=== PATIENT | female | born 1965 | race Two or more races ===

== ENCOUNTER 2022-10-29 20:42 | Inpatient (IN) | payer MEDICARE ==
[~2022-10-29] VITALS: Ht 160 cm; Wt 61.7 kg
[2022-10-29 20:00] VITALS: BP 134/76; TEMP 98.3
--- NOTE | 2022-10-29 20:00 | NUR ---
FARM PLANNER NOTE: ADMITTED A 57-Y/O, FEMALE, FROM [facility]. ADMITTED ON A 5150 HOLD FOR DTS. PER HOLD, PT. OVERDOSED ON MEDICATIONS. UPON FACE TO FACE EVALUATION, PATIENT IS ALERT AND ORIENTED X3, APPEARS TO BE DEPRESSED AND GUARDED. PATIENT DENIES SI/HI/AVH AT THIS TIME. SKIN ASSESSMENT DONE. ALL BELONGINGS WERE CHECKED FOR CONTRABAND. PATIENT'S RIGHTS WERE DISCUSSED AND BOOKLET WAS GIVEN. CONTACTED DR. MILNER AND HOSPITALIST [employer] AND INFORMED THEM OF THE ADMISSION. BED IN LOW AND LOCKED POSITION. SAFETY PRECAUTIONS MAINTAINED. PT REFUSED TO SIGN ADMITTING DOCUMENTS. PT STATED "SHE'S TIRED/SLEEPY". WILL CONTINUE TO MONITOR Q15 MINS FOR MOOD, SAFETY AND BEHAVIOR.
[2022-10-29] MEDS ORDERED: TEMAZEPAM 7.5 MG CAPSULE PO PRN (21:30)
[2022-10-29] MEDS ORDERED: MAGNESIUM HYDROXIDE 30 ML UDC PO PRN (21:30)
[2022-10-29] MEDS ORDERED: MAG HYDROX/AL HYDROX/SIMETH 30 ML UDC PO PRN (21:30)
[2022-10-29] MEDS ORDERED: BLOOD SUGAR DIAGNOSTIC 1 EACH STRIP IN ONE (21:30)
[2022-10-29] MEDS ORDERED: ACETAMINOPHEN 325 MG TABLET PO PRN (21:30)
[2022-10-29] MEDS ORDERED: LORAZEPAM 0.5 MG TABLET PO PRN (21:30)
[2022-10-29] MEDS ORDERED: TRAZ-182 MT (22:07)
[2022-10-29] MEDS ORDERED: NICO-762 TD (22:07)
[2022-10-29] MEDS ORDERED: ATOR40TA MT (22:07)
[2022-10-29] MEDS ORDERED: LISI-768 PO (22:07)
[2022-10-29] MEDS ORDERED: CARV3.122 MT (22:07)
[2022-10-29] MEDS ORDERED: FURO20TA4 MT (22:07)
[2022-10-29] MEDS ORDERED: ESCI10TA MT (22:07)
[2022-10-29] MEDS ORDERED: RIVA10TA MT (22:07)
[2022-10-30 07:56] LABS: CHOLESTEROL 144 mg/dL (<200); HDL CHOLESTEROL 90 mg/dL (40-60); LDL 46 mg/dL (0-99); TRIGLYCERIDES 33 mg/dL (30-150)
[2022-10-30 08:00] VITALS: BP 104/67; TEMP 97.9
[2022-10-30 08:00] LABS: BILIRUBIN,TOTAL 0.9 mg/dL (0.2-1.0); CALCIUM, SERUM 9.5 mg/dL (8.5-10.1); CREATININE 0.8 mg/dL (0.6-1.3); POTASSIUM 3.8 mmol/L (3.5-5.1); TOTAL PROTEIN, SERUM 7.3 g/dL (6.4-8.2)
[2022-10-30] MEDS: LISINOPRIL (5MG) 5 MG TABLET PO SCH (09:00)
[2022-10-30] MEDS: CARVEDILOL 3.125 MG TABLET PO SCH ×2 (09:10→21:25)
[2022-10-30] MEDS: FUROSEMIDE 20 MG TABLET PO SCH (09:10)
[2022-10-30] MEDS: NICOTINE PATCH (21MG) 21 MG PATCH.TD24 TD SCH (09:10)
--- NOTE | 2022-10-30 09:12 | NUR ---
RN- NOTES COREG 3.125MG ADMINISTERED AND LISINOPRIL 5MG HELD PER DR. OZUNA ORDERS. B/P 104/67 AND P 64 NOTED.
--- NOTE | 2022-10-30 10:11 | NUR ---
SHLOMO Clinical Note: Pt placed on a 5150 hold for danger to self. Per hold, pt overdosed on medication in an attempt of SI. Patient currently resides at [address] [place] [address], [place] [address]; ([phone]). Patient would want to return back home when stable.
--- NOTE | 2022-10-30 10:11 | NUR ---
SHLOMO Initial Discharge Note: Patient currently resides at [address] [place] [address], [place] [address]; ([phone]). Patient would want to return back home when stable. SHLOMO will work with the MD and pt to help coordinate appropriate discharge.
--- NOTE | 2022-10-30 12:49 | NUR ---
SHLOMO Family Contact: SW contacted pt's daughter Chen ([phone]) stated that it is unsafe for pt to go back home because she has had multiple heart attacks at home and has been left unattended for days. She reported that pt has been refusing care and has not been accepting care. She stated that she has given up on her care since last Saturday and trying to provide care. She stated that pt would need a facility. She reported that her outpatient doctor reported that pt has a short term life span.
[2022-10-30] MEDS: DIVALPROEX SODIUM 250 MG TABLET.DR PO SCH (13:40)
[2022-10-30 16:06] VITALS: BP 113/59; TEMP 97.7
[2022-10-30] MEDS: RIVAROXABAN 10 MG TABLET PO SCH (16:15)
--- NOTE | 2022-10-30 20:00 | NUR ---
RN NOTE :- RECEIVED PATIENT LYING ON THE BED .A/O X3. BREATHING EVEN AND UNLABORED WITH EQUAL RISE AND FALL OF THE CHEST.NO C/O PAIN DURING SHIFT. PATIENT IS COOPERATIVE ,MED COMPLIANT .ALL NEEDS MET AND ANTICIPATED.WILL CONTINUE TO MONITOR Q15 MINS FOR SAFETY AND BEHAVIOR WITH THE HELP OF STAFF.
[2022-10-30 21:01] VITALS: BP 113/71; TEMP 97.4
[2022-10-30] MEDS: ATORVASTATIN 40 MG TABLET PO SCH (21:24)
--- NOTE | 2022-10-31 06:29 | NUR ---
RN NOTE :- PATIENT IS SLEEPING COMFORTABLY IN BED, EASILY AWAKEN, CALM, RESPONSIVE, AOX2, BREATHING ON ROOM AIR WITHOUT DIFFICULTY, NOT IN ANY FORM OF ACUTE DISTRESS, SAFETY MEASURES IN PLACE: BED IN LOWEST AND LOCKED POSITION, SIDE RAILS UP X2, TRAY TABLE WITHIN EASY REACH. WILL ENDORSE TO MOLD CHANGER NURSE. Addendum: 10/31/22 at 0633 by CAESAR THURMAN RN WILL ENDORSE TO MORNING SHIFT NURSE*
[2022-10-31 08:00] VITALS: BP 107/61; TEMP 97.9
[2022-10-31] MEDS: ESCITALOPRAM OXALATE (10 MG) 10 MG TABLET PO SCH (08:38)
[2022-10-31] MEDS: LISINOPRIL (5MG) 5 MG TABLET PO SCH (08:38)
[2022-10-31] MEDS: NICOTINE PATCH (21MG) 21 MG PATCH.TD24 TD SCH (08:38)
[2022-10-31] MEDS: DIVALPROEX SODIUM 250 MG TABLET.DR PO SCH ×2 (08:38→12:04)
[2022-10-31] MEDS: FUROSEMIDE 20 MG TABLET PO SCH (08:38)
[2022-10-31] MEDS: CARVEDILOL 3.125 MG TABLET PO SCH ×2 (08:38→21:16)
--- NOTE | 2022-10-31 10:02 | NUR ---
RN-CO: Received patient awake, took all her meds.She is depressed and unmotivated.I encouraged er to ventilate her feelings and attend group activities. She denied pain and discomforts.
[2022-10-31 16:00] VITALS: BP 136/83; TEMP 98.4
[2022-10-31] MEDS: RIVAROXABAN 10 MG TABLET PO SCH (16:25)
[2022-10-31 20:00] VITALS: BP 130/74; TEMP 98.4
[2022-10-31] MEDS: ATORVASTATIN 40 MG TABLET PO SCH (21:16)
--- NOTE | 2022-10-31 22:39 | NUR ---
RN NOTE:- PATIENT REQUESTED FOR SLEEPING PILL. PRN MEDICATION, RESTORIL 7.5 MG, ADMINISTERED PER MD ORDER.WILL CONTINUE TO MONITOR.
--- NOTE | 2022-11-01 06:11 | NUR ---
RN NOTE :-PATIENT IS SLEEPING COMFORTABLY IN BED, EASILY AWAKEN, CALM, RESPONSIVE, AOX2, BREATHING ON ROOM AIR WITHOUT DIFFICULTY, MED COMPLIANT ,NOT IN ANY FORM OF ACUTE DISTRESS, SAFETY MEASURES IN PLACE: BED IN LOWEST AND LOCKED POSITION, SIDE RAILS UP X2, TRAY TABLE WITHIN EASY REACH. WILL CONTINUE TO MONITOR.
[2022-11-01 08:00] VITALS: BP 93/64; TEMP 97.9
[2022-11-01] MEDS: NICOTINE PATCH (21MG) 21 MG PATCH.TD24 TD SCH (08:35)
[2022-11-01] MEDS: ESCITALOPRAM OXALATE (10 MG) 10 MG TABLET PO SCH (08:35)
[2022-11-01] MEDS: DIVALPROEX SODIUM 250 MG TABLET.DR PO SCH ×3 (08:35→16:26)
[2022-11-01] MEDS: LISINOPRIL (5MG) 5 MG TABLET PO SCH (08:36)
[2022-11-01] MEDS: CARVEDILOL 3.125 MG TABLET PO SCH ×2 (08:36→20:58)
[2022-11-01] MEDS: FUROSEMIDE 20 MG TABLET PO SCH (08:36)
--- NOTE | 2022-11-01 09:45 | NUR ---
RN Notes: Received pt. awake in bed, responsive to staffs, no distress and no agitation noted. Ate 100% for breakfast. BP meds not given for a low BP and compliant on the rest of the meds including Nicotine patch. Encouraged to verbalize feelings and encouraged to attend group activity. Needs attended and will continue to monitor for safety.
[2022-11-01 16:00] VITALS: BP 107/67; TEMP 98.9
[2022-11-01] MEDS: RIVAROXABAN 10 MG TABLET PO SCH (16:26)
[2022-11-01 20:00] VITALS: BP_SYST 109; BP_SYST 98; BP_DIAS 61; BP_DIAS 65; TEMP 97.6; TEMP 98.4
--- NOTE | 2022-11-01 20:54 | NUR ---
RN- NOTES COREG 3.125MG ADMINISTERED HELD BECAUSE HER B/P 98/61 AND P 67 NOTED. OFFERED SOME FLUID TO DRINK.
[2022-11-01] MEDS: ATORVASTATIN 40 MG TABLET PO SCH (21:29)
--- NOTE | 2022-11-02 06:30 | NUR ---
RN NOTE:-PATIENT IS SLEEPING COMFORTABLY IN BED, EASILY AWAKEN, CALM, RESPONSIVE, AOX2, BREATHING ON ROOM AIR WITHOUT DIFFICULTY, NOT IN ANY FORM OF ACUTE DISTRESS, SAFETY MEASURES IN PLACE: BED IN LOWEST AND LOCKED POSITION, SIDE RAILS UP X2, TRAY TABLE WITHIN EASY REACH. WILL ENDORSE TO MORNING SHIFT NURSE.
[2022-11-02 08:00] VITALS: BP 110/63; TEMP 97.5
[2022-11-02] MEDS: NICOTINE PATCH (21MG) 21 MG PATCH.TD24 TD SCH (08:43)
[2022-11-02] MEDS: DIVALPROEX SODIUM 250 MG TABLET.DR PO SCH ×3 (08:43→17:53)
[2022-11-02] MEDS: CARVEDILOL 3.125 MG TABLET PO SCH ×2 (08:56→21:33)
[2022-11-02] MEDS: LISINOPRIL (5MG) 5 MG TABLET PO SCH (08:57)
[2022-11-02] MEDS: FUROSEMIDE 20 MG TABLET PO SCH (08:57)
--- NOTE | 2022-11-02 14:10 | NUR ---
Court Notification: SHLOMO contacted pt's daughter Chen ([phone]) and left a voicemail of [phone] hearing.
--- NOTE | 2022-11-02 14:16 | NUR ---
Court Hearing: Patient's court hearing for 5250 was today and it was upheld for GD. Addendum: 11/02/22 at 1417 by SHLOMO AGUILAR upheld for GD and danger to self.
[2022-11-02 15:58] VITALS: BP 106/70; TEMP 97.8
[2022-11-02] MEDS: RIVAROXABAN 10 MG TABLET PO SCH (17:53)
[2022-11-02 20:00] VITALS: BP 118/66; TEMP 98.4
--- NOTE | 2022-11-02 20:16 | NUR ---
GPS COAL GRADER NOTE: PATIENT IS SLEEPING COMFORTABLY IN BED, EASILY AWAKEN, CALM, RESPONSIVE, AOX2, BREATHING ON ROOM AIR WITHOUT DIFFICULTY, NOT IN ANY FORM OF ACUTE DISTRESS, SAFETY MEASURES IN PLACE: BED IN LOWEST AND LOCKED POSITION, SIDE RAILS UP X2, TRAY TABLE WITHIN EASY REACH.WILL CONTINUE TO MONITOR BEHAVIOR AND SAFETY.
[2022-11-02] MEDS: ATORVASTATIN 40 MG TABLET PO SCH (21:33)
--- NOTE | 2022-11-02 22:00 | NUR ---
GPSLVN NOTE PT COMPLIANT WITH MEDS.
--- NOTE | 2022-11-03 01:02 | NUR ---
GPS SALES SUPPORT REPRESENTATIVE NOTE PT IN BED, APPEARS SLEEPING, BREATHING EVEN AND UNLABORED, EASY TO AROUSE. SAFETY MEASURES OBSERVED. WILL CONTINUE TO MONITOR BEHAVIOR AND SAFETY.
--- NOTE | 2022-11-03 06:02 | NUR ---
GPS PHOTOGRAPH DEVELOPER NOTE PATIENT IS SLEEPING COMFORTABLY IN BED, EASILY AWAKEN, CALM, RESPONSIVE, AOX2, BREATHING ON ROOM AIR WITHOUT DIFFICULTY, NOT IN ANY FORM OF ACUTE DISTRESS, SAFETY MEASURES IN PLACE: BED IN LOWEST AND LOCKED POSITION, SIDE RAILS UP X2, TRAY TABLE WITHIN EASY REACH. PT WAS COMPLIANT WITH HER MEDS AND COOPERATIVE DURING SHIFT. WILL ENDORSE TO MORNING SHIFT NURSE.
[2022-11-03 08:00] VITALS: BP 107/71; TEMP 98.9
[2022-11-03] MEDS: LISINOPRIL (5MG) 5 MG TABLET PO SCH (08:10)
[2022-11-03] MEDS: CARVEDILOL 3.125 MG TABLET PO SCH ×2 (08:10→21:34)
[2022-11-03] MEDS: FUROSEMIDE 20 MG TABLET PO SCH (08:10)
[2022-11-03] MEDS: DIVALPROEX SODIUM 250 MG TABLET.DR PO SCH ×3 (08:12→16:17)
[2022-11-03] MEDS: NICOTINE PATCH (21MG) 21 MG PATCH.TD24 TD SCH (08:12)
[2022-11-03 16:00] VITALS: BP 102/63; TEMP 98.6
[2022-11-03] MEDS: RIVAROXABAN 10 MG TABLET PO SCH (16:17)
[2022-11-03 20:48] VITALS: BP 107/60; TEMP 98.6
[2022-11-03] MEDS: ATORVASTATIN 40 MG TABLET PO SCH (21:33)
[2022-11-04 08:00] VITALS: BP 102/71; TEMP 97.4
[2022-11-04] MEDS: LISINOPRIL (5MG) 5 MG TABLET PO SCH (08:27)
[2022-11-04] MEDS: FUROSEMIDE 20 MG TABLET PO SCH (08:27)
[2022-11-04] MEDS: CARVEDILOL 3.125 MG TABLET PO SCH ×2 (08:28→21:28)
[2022-11-04] MEDS: DIVALPROEX SODIUM 250 MG TABLET.DR PO SCH ×3 (08:29→16:20)
[2022-11-04] MEDS: NICOTINE PATCH (21MG) 21 MG PATCH.TD24 TD SCH (08:29)
[2022-11-04 16:00] VITALS: BP 108/77; TEMP 98
[2022-11-04] MEDS: RIVAROXABAN 10 MG TABLET PO SCH (16:20)
[2022-11-04 20:13] VITALS: BP 121/75; TEMP 98
[2022-11-04] MEDS: ATORVASTATIN 40 MG TABLET PO SCH (21:28)
--- NOTE | 2022-11-04 21:32 | NUR ---
Pt A/O x3 and able to make needs known. Pt is compliant with care and friendly with staff. Compliant with all PM meds and tolerated well. Pt is calm and resting in bed without s/s of any kind of distress. Has left side of body weakness and able to transfer to wheelchair safely. Has BRP. Vital signs within normal limits. Frequent visual check done for safety Q 15mins. Will continue to monitor. Will endorse to next shift.
[2022-11-05 08:00] VITALS: BP 102/68; TEMP 97.7
[2022-11-05] MEDS: CARVEDILOL 3.125 MG TABLET PO SCH ×2 (08:17→20:44)
[2022-11-05] MEDS: NICOTINE PATCH (21MG) 21 MG PATCH.TD24 TD SCH (08:17)
[2022-11-05] MEDS: DIVALPROEX SODIUM 250 MG TABLET.DR PO SCH ×3 (08:17→16:42)
[2022-11-05] MEDS: FUROSEMIDE 20 MG TABLET PO SCH (08:18)
[2022-11-05] MEDS: LISINOPRIL (5MG) 5 MG TABLET PO SCH (08:18)
--- NOTE | 2022-11-05 12:28 | NUR ---
SNF Referral: SHLOMO sent clinicals to Lula goodman ([phone]) from [facility]. SW sent H & P, progress notes, and medication list for placement.
--- NOTE | 2022-11-05 13:59 | NUR ---
SHLOMO Family Contact: SHLOMO contacted pt's daughter Chen ([phone]) and left a voicemail indicating that this personal lines underwriter will fax clinicals to nursing facilities.
[2022-11-05 16:00] VITALS: BP 100/71; TEMP 97.8
--- NOTE | 2022-11-05 16:00 | NUR ---
SHLOMO SNF Referral: SHLOMO sent clinicals to Kehinde alvarez from [facility] ([phone]) for placement. SHLOMO sent H & P, progress notes, and medication list.
[2022-11-05] MEDS: RIVAROXABAN 10 MG TABLET PO SCH (16:48)
[2022-11-05 20:55] VITALS: BP 110/71; TEMP 98.4
[2022-11-05] MEDS: ATORVASTATIN 40 MG TABLET PO SCH (21:09)
--- NOTE | 2022-11-06 07:10 | NUR ---
SLEEVE SETTER SAFETY STITCH OPENING NOTE PATIENT A/A/OX3, CALM, NO S/S OF DISCOMFORT NOTED, PATIENT IS IN GOOD MOOD. PATIENT ASSISTED TO GET OUT OF BED TO W/C, PATIENT IS LEFT SIDE WEAKNESS. PATIENT IS COOPERATIVE DURING TRANSFER. PATIENT DENIES PAIN, NO S/S OF DISCOMFORT NOTED. NO RESPIRATORY DISTRESS NOTED. SAFETY MEASURES IN PLACE, TABLE, W/C WITHIN REACH. CONT. TO MONITOR.
[2022-11-06 08:00] VITALS: BP 103/63; TEMP 98.6
[2022-11-06] MEDS: DIVALPROEX SODIUM 250 MG TABLET.DR PO SCH ×3 (08:48→16:43)
[2022-11-06] MEDS: NICOTINE PATCH (21MG) 21 MG PATCH.TD24 TD SCH (08:48)
[2022-11-06] MEDS: LISINOPRIL (5MG) 5 MG TABLET PO SCH (09:00)
[2022-11-06] MEDS: FUROSEMIDE 20 MG TABLET PO SCH (09:00)
[2022-11-06] MEDS: CARVEDILOL 3.125 MG TABLET PO SCH ×2 (09:00→21:12)
--- NOTE | 2022-11-06 09:00 | NUR ---
SLASHER NOTE PATIENT'S B/P LOW 103/63 HR 66, RESP 19 TEMP 98.6 B/P MEDS ON HOLD FOR NOW, I WILL CHECK THE BLOOD PRESSURE IN ONE HOUR THEN I WILL ADMINISTER B/P MEDICATION PRESCRIBED.
--- NOTE | 2022-11-06 09:58 | NUR ---
DATA VIRTUALIZATION CONSULTANT NOTE BLOOD PRESSURE RE-CHECKED AT PRESENT: B/P 106/65 HR 54 02 SAT 97% IN ROOM AIR. PATIENT DENIES DIZZINESS, FEELING WEAK ONLY LIKE NO ENERGY, PATIENT STATED "I ALWAYS FEEL THAT WAY". I EXPLAIN TO THE PATIENT THAT SHE NEEDS TO CALL FOR HELP WHEN SHE GET OUT OF BED, THERE IS A RISK FOR FALLS DUE TO LOW BLOOD PRESSURE AND FEELING WEAK. I ENCOURAGED TO PATIENT TO DRINK MORE WATER, EAT MORE AND STAY IN BED FOR NOW FOR SAFETY AND I WILL NOTIFIED TO MY CHARGE NURSE MILDRED BROWER AND TO THE MEDICAL DOCTOR ALSO. PATIENT VERBALIZED UNDERSTANDING INFORMATION WITHOUT DIFFICULTY. SAFETY MEASURES IN PLACE, BED LOCKED TO THE LOWEST POSITION, TABLE AND W/C WITHIN REACH. CONT. TO MONITOR.
--- NOTE | 2022-11-06 10:10 | NUR ---
INSPECTING SUPERVISOR NOTE B/P RE-CHECKED 100/63 HR 62 ANTI HTN NOT GIVEN. WILL CONTINUE TO MONITOR.
--- NOTE | 2022-11-06 11:30 | NUR ---
SHLOMO SNF Contact: SHLOMO spoke with Sheree goodman from [facility] ([phone]) who stated that they cannot accept pt and are unable to provide the appropriate care.
--- NOTE | 2022-11-06 11:54 | NUR ---
SNF Referral: SHLOMO sent clinicals to Celina alvarez from [facility] ([phone]) for placement. SW sent H & P, progress notes, and medication list.
--- NOTE | 2022-11-06 12:53 | NUR ---
SNF Referral: SHLOMO sent clinicals to Angela alvarez from [facility] ([phone]) for placement. SHLOMO sent H & P, progress notes, and medication list.
--- NOTE | 2022-11-06 12:53 | NUR ---
SNF Contact: SW spoke with Celina alvarez from [facility] ([phone]) who denied pt.
--- NOTE | 2022-11-06 13:38 | NUR ---
SNF Contact: SW spoke with Angela alvarez from [facility] ([phone]) who stated that pt is accepted.
[2022-11-06 16:00] VITALS: BP 96/60; TEMP 97.9
[2022-11-06] MEDS: RIVAROXABAN 10 MG TABLET PO SCH (16:44)
--- NOTE | 2022-11-06 18:32 | NUR ---
ASSOCIATE PROFESSOR OF LAW CLOSING NOTE PATIENT CALM, AWAKE, ALERT AND ORIENTED X3. PATIENT IS USING W/C TO GO AROUND THE HALLWAY. PATIENT TOOK HER MEDICATIONS TODAY WITHOUT DIFFICULTY. SAFETY MEASURES IN PLACE, BED LOCKED TO THE LOWEST POSITION, TABLE AND W/C WITHIN REACH. PATIENT ASSISTED TO TRANSFER FROM BED TO W/C DUE TO LEFT SIDED WEAKNESS. I WILL ENDORSE TO THE FOLLOWING NURSE.
[2022-11-06 20:17] VITALS: BP 108/61; TEMP 97.6
[2022-11-06] MEDS: ATORVASTATIN 40 MG TABLET PO SCH (21:11)
[2022-11-07 08:00] VITALS: BP 103/66; TEMP 98.7
[2022-11-07] MEDS: LISINOPRIL (5MG) 5 MG TABLET PO SCH (08:14)
[2022-11-07] MEDS: CARVEDILOL 3.125 MG TABLET PO SCH ×2 (08:14→20:32)
[2022-11-07] MEDS: DIVALPROEX SODIUM 250 MG TABLET.DR PO SCH ×3 (08:15→16:52)
[2022-11-07] MEDS: FUROSEMIDE 20 MG TABLET PO SCH (08:15)
[2022-11-07] MEDS: NICOTINE PATCH (21MG) 21 MG PATCH.TD24 TD SCH (08:15)
--- NOTE | 2022-11-07 11:02 | NUR ---
SHLOMO Family Contact: SW contacted pt's daughter Chen ([phone]) and left a detailed voicemail that pt is accepted at [facility] and she would want to go to the facility.
--- NOTE | 2022-11-07 14:43 | NUR ---
SHLOMO Family Contact: SW contacted pt's daughter Chen ([phone]) stated that pt has been contacting constantly throughout the day and has been bothering family. SW notified. Dr. Matias.
--- NOTE | 2022-11-07 14:50 | NUR ---
SW Note: SW spoke with pt and stated if she has been calling her daughter consistently and leaving voicemails stating that she is not depressed and that the treatment team is lying to her. SW asked pt if this is true. Pt stated "I have been calling my family but few days ago". SW stated that family is feeling overwhelmed and that she needs to limit the calls. Pt appeared to be understanding.
[2022-11-07 16:00] VITALS: BP 113/72; TEMP 98.1
[2022-11-07] MEDS: RIVAROXABAN 10 MG TABLET PO SCH (16:52)
[2022-11-07 19:30] VITALS: BP 105/70; TEMP 97.6
--- NOTE | 2022-11-07 20:32 | NUR ---
RN NOTES COREG ORAL MEDICATIONS HOLD BECAUSE BP IS LOW 100/60MMHG. WILL CONTINUE TO MONITOR
[2022-11-07] MEDS: ATORVASTATIN 40 MG TABLET PO SCH (21:08)
[2022-11-08 08:00] VITALS: BP 123/55; TEMP 98
[2022-11-08] MEDS: NICOTINE PATCH (21MG) 21 MG PATCH.TD24 TD SCH (08:15)
[2022-11-08] MEDS: DIVALPROEX SODIUM 250 MG TABLET.DR PO SCH ×2 (08:16→12:22)
[2022-11-08] MEDS: CARVEDILOL 3.125 MG TABLET PO SCH ×2 (08:16→21:30)
[2022-11-08] MEDS: FUROSEMIDE 20 MG TABLET PO SCH (08:16)
[2022-11-08] MEDS: LISINOPRIL (5MG) 5 MG TABLET PO SCH (08:16)
--- NOTE | 2022-11-08 09:49 | NUR ---
RN-CO: PATIENT IS IN THE DINING ROOM, SOCIALIZING W/ OTHER PATIENTS, SHE IS COOPERATIVE TO CARE. PT IS UNKEMPT AND DISHEVELED, UNMOTIVATED TO SELFCARE. SHE IS DEPRESSED BUT DENIED SUICIDAL IDEATION. I ENCOURAGED HER TO PARTICIPATE IN GROUPS AND VENTILATE HER FEELINGS.
[2022-11-08 16:00] VITALS: BP 100/60; TEMP 98
[2022-11-08] MEDS: RIVAROXABAN 10 MG TABLET PO SCH (16:12)
--- NOTE | 2022-11-08 19:30 | NUR ---
GPS RN NOTE, RECEIVED PATIENT AWAKE AND IN BED, NO S/S OR COMPLAINTS OF PAIN AT THIS TIME. PATIENT IS DISPLAYING NO S/S OF APPARENT DISTRESS AT THIS TIME. PATIENT BREATHING IS UNLABORED WITH EQUAL RISE AND FALL OF THE CHEST. PATIENT IS ALERT AND ORIENTED X 3 ON ROOM AIR WITH A SPO2 95%. PATIENT IS COMPLAINT WITH MEDICATIONS, ANXIOUS AT TIMES, MAKES NEEDS KNOWN, AND COOPERATIVE. PATIENT DENIES SUICIDAL AND HOMICIDAL IDEATIONS AT THIS TIME. PATIENT ASSISTED WITH TURNING AND REPOSITIONING Q2HR AND PRN FOR COMFORT AND CIRCULATION. PATIENT HAS NO NEEDS AT THIS TIME. PATIENT EDUCATED ON THE USE OF THE CALL PITTS. PATIENT BED SIDE RAILS UP X 2 FOR SAFETY. PATIENT BED IS LOCKED, LOW, WITH BED ALARM ON. WILL CONTINUE TO MONITOR THIS PATIENT Q15 MINUTES WITH THE HELP OF STAFF TO MAINTAIN SAFETY.
[2022-11-08] MEDS ORDERED: DIVALPROEX SODIUM 500 MG TABLET.DR PO SCH (21:00)
[2022-11-08] MEDS: ATORVASTATIN 40 MG TABLET PO SCH (21:29)
[2022-11-09 06:58] LABS: BASOPHILS % (AUTO) 0.8 % (0.0-2.0); EOSINOPHILS % (AUTO) 1.9 % (0.0-6.0); HEMATOCRIT 40 % (33-45); HEMOGLOBIN 13.1 g/dL (11.5-14.8); LYMPHOCYTES # (AUTO) 2.2 K/uL (0.8-4.8); LYMPHOCYTES % (AUTO) 51.3 % (20.0-44.0); MEAN CORPUSCULAR HGB CONC 33 g/dl (31.0-36.0); MEAN CORPUSCULAR VOLUME 98 fL (82-100); MONOCYTES # (AUTO) 0.3 K/uL (0.1-1.30); MONOCYTES % (AUTO) 7.6 % (2.0-12.0); NEUTROPHILS # (AUTO) 1.7 K/uL (1.8-8.9); NEUTROPHILS % (AUTO) 38.4 % (43.0-81.0); PLATELET COUNT (AUTO) 183 K/uL (150-450); RED BLOOD CELL COUNT(AUTO) 4.06 MIL/uL (4.0-5.2); WHITE BLOOD COUNT (AUTO) 4.3 K/uL (4.3-11.0)
[2022-11-09 07:27] LABS: ALBUMIN 3.2 g/dL (3.4-5.0); BILIRUBIN,TOTAL 0.4 mg/dL (0.2-1.0); CALCIUM, SERUM 9.2 mg/dL (8.5-10.1); CREATININE 0.6 mg/dL (0.6-1.3); MAGNESIUM 1.6 mg/dL (1.8-2.4); PHOSPHORUS 3.3 mg/dL (2.5-4.9); POTASSIUM 3.9 mmol/L (3.5-5.1); TOTAL PROTEIN, SERUM 6.2 g/dL (6.4-8.2)
[2022-11-09 08:00] VITALS: BP 116/60; TEMP 97.4
[2022-11-09] MEDS ORDERED: DIVALPROEX SODIUM 250 MG TABLET.DR PO SCH (08:00)
[2022-11-09] MEDS: FUROSEMIDE 20 MG TABLET PO SCH (09:00)
[2022-11-09] MEDS: CARVEDILOL 3.125 MG TABLET PO SCH ×2 (09:00→21:21)
[2022-11-09] MEDS: NICOTINE PATCH (21MG) 21 MG PATCH.TD24 TD SCH (09:00)
[2022-11-09] MEDS: LISINOPRIL (5MG) 5 MG TABLET PO SCH (09:01)
[2022-11-09] MEDS ORDERED: MAGNESIUM OXIDE 400 MG TABLET PO ONE (10:00)
--- NOTE | 2022-11-09 10:30 | NUR ---
RN Notes: Received pt. awake in bed, responsive to staffs. Pt. ate 100% for breakfast and compliant on meds. Pt. is worried about her Depakote that she is getting it 2x a day, it will make her mood bad. Encouraged to verbalize feelings and motivated to attend group activities. Needs attended and will continue to monitor for safety.
[2022-11-09 16:00] VITALS: BP 110/64; TEMP 98.9
[2022-11-09] MEDS: RIVAROXABAN 10 MG TABLET PO SCH (16:39)
[2022-11-09 20:43] VITALS: BP 103/54; TEMP 98.7
[2022-11-09 21:00] VITALS: BP 123/70; TEMP 98
[2022-11-09] MEDS: ATORVASTATIN 40 MG TABLET PO SCH (21:22)
[2022-11-09] MEDS: LITHIUM CARBONATE 150 MG CAPSULE PO SCH (21:22)
[2022-11-10 08:00] VITALS: BP 100/57; TEMP 97.6
[2022-11-10] MEDS ORDERED: LITHIUM CARBONATE 150 MG CAPSULE PO SCH (08:00)
[2022-11-10] MEDS: CARVEDILOL 3.125 MG TABLET PO SCH ×2 (08:43→21:12)
[2022-11-10] MEDS: NICOTINE PATCH (21MG) 21 MG PATCH.TD24 TD SCH (08:43)
[2022-11-10] MEDS: FUROSEMIDE 20 MG TABLET PO SCH (08:43)
[2022-11-10] MEDS: LISINOPRIL (5MG) 5 MG TABLET PO SCH (08:43)
--- NOTE | 2022-11-10 10:58 | NUR ---
RN-NOTES PATIENT REQUESTING MAALOX FOR INDIGESTION.MAALOX 30MLGIVEN PRN ORDER.
--- NOTE | 2022-11-10 11:04 | NUR ---
RN-NOTES RECEIVED PATIENT AROUND 0700AM SLEEPING WITH BREATHING EVEN AND NONLABORED EASILY AROUSED,A/O X3 CALM,NO ACUTE DISTRESS NOTED.COMPLIANT WITH MEDICATIONS.PATIENT ABLE TO TRANSFER SELF FROM BED TO WHEEL CHAIR AND VISE VERSA WITH NO ASSIST AND PATIENT ABLE TO WHEELED SELF AROUND THE UNIT . ATTENDED GROUPS.WILL CONT. MONITORING FOR SAFETY AND BEHAVIOR.
[2022-11-10 16:00] VITALS: BP 107/59; TEMP 98
[2022-11-10] MEDS: RIVAROXABAN 10 MG TABLET PO SCH (16:17)
--- NOTE | 2022-11-10 20:06 | NUR ---
RN NOTES: PATIENT WHEELING SELF AROUND THE UNIT. A/OX3. NO S/SX OF ACUTE DISTRESS NOTED. PATIENT REMAINS EASILY AGITATED ANXIOUS, GUARDED, DEPRESSED. DENIES SI/HI/AVH AT THIS TIME. VERBALIZATION OF FEELINGS ENCOURAGED. WILL CONTINUE TO MONITOR Q15MIN ROUNDS FOR SAFETY.
[2022-11-10 20:52] VITALS: BP 100/60; TEMP 98.4
[2022-11-10] MEDS: ATORVASTATIN 40 MG TABLET PO SCH (21:12)
[2022-11-10] MEDS: LITHIUM CARBONATE 150 MG CAPSULE PO SCH (21:12)
[2022-11-11 08:00] VITALS: BP 105/65; TEMP 98.9
[2022-11-11] MEDS: LITHIUM CARBONATE 150 MG CAPSULE PO SCH ×2 (08:20→21:13)
[2022-11-11] MEDS: CARVEDILOL 3.125 MG TABLET PO SCH ×2 (08:21→21:13)
[2022-11-11] MEDS: LISINOPRIL (5MG) 5 MG TABLET PO SCH (08:21)
[2022-11-11] MEDS: FUROSEMIDE 20 MG TABLET PO SCH (08:21)
[2022-11-11] MEDS: NICOTINE PATCH (21MG) 21 MG PATCH.TD24 TD SCH (08:22)
[2022-11-11 16:00] VITALS: BP 100/57; TEMP 98.9
[2022-11-11] MEDS: RIVAROXABAN 10 MG TABLET PO SCH (17:32)
[2022-11-11 20:00] VITALS: BP 108/65; TEMP 98
[2022-11-11] MEDS: ATORVASTATIN 40 MG TABLET PO SCH (21:13)
[2022-11-12 08:00] VITALS: BP 119/61; TEMP 98
[2022-11-12] MEDS: LITHIUM CARBONATE 150 MG CAPSULE PO SCH ×2 (08:09→20:31)
[2022-11-12] MEDS: FUROSEMIDE 20 MG TABLET PO SCH (08:09)
[2022-11-12] MEDS: CARVEDILOL 3.125 MG TABLET PO SCH ×2 (08:09→20:32)
[2022-11-12] MEDS: LISINOPRIL (5MG) 5 MG TABLET PO SCH (08:10)
[2022-11-12] MEDS: NICOTINE PATCH (21MG) 21 MG PATCH.TD24 TD SCH (08:10)
[2022-11-12 16:00] VITALS: BP 105/73; TEMP 98.7
[2022-11-12] MEDS: RIVAROXABAN 10 MG TABLET PO SCH (16:15)
--- NOTE | 2022-11-12 18:39 | NUR ---
RN- CLOSING NOTES PATIENT AWAKE, RESTING IN BED, BREATHING EVEN AND NON LABORED WITH NO S/S OF DISTRESS. PATIENT IS COOPERATIVE, ANXIOUS, QUIET, DEPRESSED, AND ISOLATIVE. ENCOURAGED PATIENT TO LEAVE ROOM AND SOCIALIZE WITH STAFF, PATIENT REFUSED. PATIENT IS MEDICATION COMPLIANT. DENIES SI/HI AT THIS TIME. WILL CONTINUE TO MONITOR Q 15 MINUTES FOR SAFETY AND BEHAVIOR.
--- NOTE | 2022-11-12 20:00 | NUR ---
RN NOTE:- PATIENT IS IN THE DINING ROOM, SOCIALIZING W/ OTHER PATIENTS, SHE IS COOPERATIVE TO CARE. PT IS UNKEMPT AND DISHEVELED, UNMOTIVATED TO SELF CARE. SHE IS DEPRESSED BUT DENIED SUICIDAL IDEATION. NO SOB, NO PAIN .WILL CONTINUE TO MONITOR FOR SAFETY.
--- NOTE | 2022-11-12 21:00 | NUR ---
RN NOTE : - COREG 3.125 MG ORAL MEDICATIONS HOLD BECAUSE BP IS LOW 97/60 MMHG AND PULSE 69 . WILL CONTINUE TO MONITOR
[2022-11-12] MEDS: ATORVASTATIN 40 MG TABLET PO SCH (21:10)
[2022-11-13 08:00] VITALS: BP 100/59; TEMP 97.6
[2022-11-13] MEDS: FUROSEMIDE 20 MG TABLET PO SCH (08:14)
[2022-11-13] MEDS: LITHIUM CARBONATE 150 MG CAPSULE PO SCH ×2 (08:14→20:58)
[2022-11-13] MEDS: NICOTINE PATCH (21MG) 21 MG PATCH.TD24 TD SCH (08:14)
[2022-11-13] MEDS: CARVEDILOL 3.125 MG TABLET PO SCH ×2 (08:15→21:08)
[2022-11-13] MEDS: LISINOPRIL (5MG) 5 MG TABLET PO SCH (08:16)
--- NOTE | 2022-11-13 13:47 | NUR ---
SHLOMO Family Contact: SHLOMO contacted pt's daughter Chen ([phone]) and notified of dc for [facility]. SHLOMO left a voicemail.
[2022-11-13 16:10] VITALS: BP 95/73; TEMP 97.8
[2022-11-13] MEDS: RIVAROXABAN 10 MG TABLET PO SCH (17:18)
[2022-11-13] MEDS: ATORVASTATIN 40 MG TABLET PO SCH (20:59)
[2022-11-13 21:29] VITALS: BP 116/69; TEMP 97.8
--- NOTE | 2022-11-14 07:00 | NUR ---
GPS RN OPENING NOTE: A/O X3 CALM,NO ACUTE DISTRESS NOTED.COMPLIANT WITH MEDICATIONS.PATIENT ABLE TO TRANSFER SELF FROM BED TO WHEEL CHAIR WITH NO ASSIST AND PATIENT ABLE TO WHEELED SELF AROUND THE UNIT . ATTENDED GROUPS.WILL CONT. MONITORING FOR SAFETY AND BEHAVIOR. DENIES SI/HI.
[2022-11-14 08:00] VITALS: BP 113/84; TEMP 98.6
[2022-11-14] MEDS: LITHIUM CARBONATE 150 MG CAPSULE PO SCH (08:14)
[2022-11-14] MEDS: CARVEDILOL 3.125 MG TABLET PO SCH (08:14)
--- NOTE | 2022-11-14 08:14 | NUR ---
SW Discharge Note: Patient will be discharged to [facility] located at [address] [place] [address]; ([phone]) via ambulance. Angela alvarez from [facility] ([phone]) accepted pt and is welcoming pt today. SW notified pts daughter Chen ([phone]). Pt appears to be alert and oriented x1. Pt denies visual/auditory hallucinations. Pt denies denies suicidal or homicidal ideation. Patient will continue to follow-up with (Psychiatrist) Dr. Matias [address] [facility] [address], [place] [address]; ([phone]). (Tax Associate Attorney) Dr. Quarles [address] [facility] [address], [place] [address]; ([phone]).
[2022-11-14 08:15] VITALS: BP 113/84
[2022-11-14] MEDS: FUROSEMIDE 20 MG TABLET PO SCH (08:15)
[2022-11-14] MEDS: LISINOPRIL (5MG) 5 MG TABLET PO SCH (08:15)
[2022-11-14] MEDS: NICOTINE PATCH (21MG) 21 MG PATCH.TD24 TD SCH (08:21)
[2022-11-14 08:53] LABS: BASOPHILS # (AUTO) 0.1 K/uL (0.0-0.2); BASOPHILS % (AUTO) 0.5 % (0.0-2.0); EOSINOPHILS % (AUTO) 1.5 % (0.0-6.0); HEMATOCRIT 42 % (33-45); HEMOGLOBIN 14.4 g/dL (11.5-14.8); LYMPHOCYTES # (AUTO) 2.5 K/uL (0.8-4.8); LYMPHOCYTES % (AUTO) 20.9 % (20.0-44.0); MEAN CORPUSCULAR HGB CONC 34 g/dl (31.0-36.0); MEAN CORPUSCULAR VOLUME 97 fL (82-100); MONOCYTES % (AUTO) 8.6 % (2.0-12.0); NEUTROPHILS # (AUTO) 8.1 K/uL (1.8-8.9); NEUTROPHILS % (AUTO) 68.5 % (43.0-81.0); PLATELET COUNT (AUTO) 198 K/uL (150-450); RED BLOOD CELL COUNT(AUTO) 4.36 MIL/uL (4.0-5.2); WHITE BLOOD COUNT (AUTO) 11.8 K/uL (4.3-11.0)
[2022-11-14 09:09] LABS: BILIRUBIN,TOTAL 0.5 mg/dL (0.2-1.0); CALCIUM, SERUM 9.8 mg/dL (8.5-10.1); CREATININE 0.7 mg/dL (0.6-1.3); POTASSIUM 3.3 mmol/L (3.5-5.1); TOTAL PROTEIN, SERUM 7.5 g/dL (6.4-8.2)
--- NOTE | 2022-11-14 11:57 | NUR ---
GPS RN NOTE: GAVE REPORT TO EDITH BROWER AT [facility] [phone]
--- NOTE | 2022-11-14 12:57 | NUR ---
THIS 57 YEAR OLD FEMALE DISCHARGED TO [facility] [phone] IN STABLE CONDITION. COMPLIANT WITH MEDICATIONS, COOPERATIVE WITH TREATMENT PLANS. PT DENIES SI/HI AND INSTRUCTED TO GO TO THE CLOSEST ER IF DEVELOPING SI/HI. BEHAVIOR IMPROVED, PSYCHIATRIC TX PLANS MET, MEDICAL TX PLANS DEFERRED FOR CONTINUAL MONITORING. EDUCATED PT ABOUT AFTER CARE PLAN (EXIT CARE) AND COPY PROVIDED. RETURNED PERSONAL BELONGINGS TO PATIENT. MED RECON WITH DR. JAIME. REPORT GIVEN TO EDITH BROWER. PT LEFT UNIT AT 1300 VIA [facility] UNIT 260.
== END 2022-11-14 13:00 | DRG 885 ==
LOC: GPS 20:42
PROVIDERS: ADMIT Psychiatry & Neurology Psychosomatic Medicine; ATTEND Nurse Practitioner Acute Care
DX: F31.9 Bipolar disorder, unspecified (principal); I11.0 Hypertensive heart disease with heart failure; R45.851 Suicidal ideations; E44.1 Mild protein-calorie malnutrition; I50.9 Heart failure, unspecified; E88.09 Other disorders of plasma-protein metabolism, not elsewhere classified; F17.210 Nicotine dependence, cigarettes, uncomplicated; F41.9 Anxiety disorder, unspecified; I48.91 Unspecified atrial fibrillation; Z79.01 Long term (current) use of anticoagulants; Z86.73 Personal history of transient ischemic attack (TIA), and cerebral infarction without residual deficits; Z88.0 Allergy status to penicillin; Z20.822 Contact with and (suspected) exposure to COVID-19; Z91.51 Personal history of suicidal behavior; F12.90 Cannabis use, unspecified, uncomplicated; Z71.6 Tobacco abuse counseling; Z68.24 Body mass index [BMI] 24.0-24.9, adult
CPT/HCPCS: 36415; 80053-TC; 80061-TC; 80164-TC; 82962-TC; 83735-TC; 84100-TC; 85025-TC; 87081-TC; 93307-TC; 97110-TC; 97112-TC; 97116-TC; 97530-TC